=== PATIENT | male | born 1980 | race Caucasian/White ===

== ENCOUNTER 2019-08-12 09:57 | Emergency (ER) | payer OTHER, SELFPAY ==
--- NOTE | ~2019-08-12 | XR_ITS ---
EXAMINATION: XR hand LT min 3V DATE: 08/12/2019 10:47 INDICATION: Left hand injury and pain. TECHNIQUE: 3 views of left hand were obtained. COMPARISON: None. FINDINGS: Bone alignment is normal. No fracture. There is mild osteoarthritis of first carpometacarpa l joint and first interphalangeal joint. IMPRESSION: 1. Mild polyarticular osteoarthritis. Reviewed, dictated and finalized at location A. [employer]
[2019-08-12 10:25] VITALS: BP 143/83; PULSE 75; RESP 18; TEMP 36.6; O2SAT 96
--- NOTE | 2019-08-12 11:06 | ED.UPPEXIN ---
HPI - Extremity Injury (Upper) General Chief Complaint: Extremity Injury, Upper Stated Complaint: smashed hand at work Time Seen by Provider: 08/12/19 11:00 Source: patient and RN notes reviewed Mode of arrival: ambulatory Limitations: no limitations History of Present Illness HPI narrative: Patient had a crush injury sustained at work. He said that a large piece of steel was being pushed and he was pulling it. Then it got pushed and his hand was between the railing and the large piece of steel. complaint: injury to: left and hand Onset (ago): minute(s) (30) Other injuries: none Handedness: right Place: work Severity: moderate Relieving factors: none Exacerbating factors: movement of extremity Context: crush Associated symptoms: numbness Related Data Home Medications Medication Instructions Recorded Confirmed ibuprofen 800 mg PO Q6H PRN 08/12/19 08/12/19 Allergies Allergy/AdvReac Type Severity Reaction Status Date / Time No Known Allergies Allergy Verified 08/12/19 10:47 Review of Systems Review of Systems: All systems reviewed & are unremarkable except as noted in HPI and below PMFSH Past Medical History Medical History (Updated 08/12/19 @ 11:11 by Luis Blevins MD) Hypertension Surgical History Surgical History (Updated 08/12/19 @ 11:08 by Luis Blevins MD) No history of previous surgery Social History Social History (Updated 08/12/19 @ 11:09 by Luis Blevins MD) Smoking status: Never smoker Alcohol intake: never Substance use: never Exam Const: General: healthy appearing and no acute distress Nutritional Appearance: well nourished Orientation/consciousness: patient oriented x3 HENMT: Head: normal to inspection Ears: external ears normal General nose exam: Normal external nose present Face and sinus: normal facial exam Eyes: Conjunctivae: conjunctivae normal Pupils: Equal, round and reactive pupils present EOM: EOMs intact bilaterally Neck: Neck: normal visual inspection Resp: Effort & Inspection: normal respiratory effort Auscultation: clear to auscultation bilaterally Cardio: Rate: regular rate Rhythm: regular rhythm Heart sounds: no murmurs GI: GI Palp: Yes Soft to palpation and No Tenderness to palpation present (GI) Auscultation: normal bowel sounds Back/Spine/Pelvis: Cervical Spine: cervical ROM normal Thoracic/Lumbar Spine: thoraco-lumbar ROM normal Skin: General skin exam: normal color Rashes: no rashes Neuro: General: patient oriented x3, moves all extremities and no focal motor deficits Speech: normal speech Gait exam (Neuro): Normal gait present Extrem: General: no clubbing, cyanosis or edema Left upper extremity: hand neuromotor exam normal, neurosensory exam normal, tenderness of the dorsal hand distally, swelling of the dorsal hand distally and abrasion of the dorsal hand distally; no lacerations Course Vital Signs Vital signs: Vital Signs Temperature 36.6 C 08/12/19 10:25 Pulse Rate 75 08/12/19 10:25 Respiratory Rate 18 08/12/19 10:25 Blood Pressure 143/83 H 08/12/19 10:25 Pulse Oximetry 96 08/12/19 10:25 Temperature 36.6 C 08/12/19 10:25 Pulse Rate 80 08/12/19 11:09 Respiratory Rate 18 08/12/19 11:09 Blood Pressure 135/82 08/12/19 11:09 Pulse Oximetry 98 08/12/19 11:09 Discharge Plan Discharge Clinical Impression: Contusion Qualifiers: Encounter type: initial encounter Contusion area: hand Laterality: left Qualified Code(s): S60.222A - Contusion of left hand, initial encounter Patient Disposition: Home, Self-Care Condition: Stable Instructions: Contusion in Adults (ED) Additional Instructions: Tylenol Motrin as needed ice and elevate. Follow-up with primary care physician if not improved. Prescriptions: No Action ibuprofen 800 mg Tablet 800 mg PO Q6H PRN (Reason: Pain) RF: 0 Follow-up/Referrals: PHYSICIAN NOT ON STAFF,NONSTAFF [Primary Care Provider] -
[2019-08-12 11:09] VITALS: BP 135/82; PULSE 80; RESP 18; O2SAT 98
== END 2019-08-12 11:15 | disposition home or self-care (01) ==
PROVIDERS: Emergency Provider Emergency Medicine
DX: S60.222A Contusion of left hand, initial encounter (principal); W22.8XXA Striking against or struck by other objects, initial encounter
CPT/HCPCS: 73130; 99282; 99283